=== PATIENT | female | born 2000 | race Hispanic/Latino ===

== ENCOUNTER 2018-05-10 13:48 | Outpatient (CLI) | payer MEDICAID ==
--- NOTE | 2018-05-10 16:01 | ULT ---
OB ULTRASOUND 05/10/18 HISTORY: Positive , evaluate size and dates. FINDINGS: There is a single intrauterine gestation with transverse lie head to the maternal left. Cardiac doppl er does demonstrate heart tones with heart rate of 152 beats per minute. The placenta is located anteriorly. Initial imaging questions possibility of a low lying placenta, but followup imagi ng after voiding suggests no evidence of placenta previa or low lying placenta. There is a normal anthony unt of amniotic fluid with an amniotic fluid index of 13.29 cm. measurements: Biparietal diameter 4.43 cm 19 weeks, 3 days Head circumference 17.03 cm 19 weeks, 5 days Abdominal circumference 15.56 cm 20 weeks, 6 days Femur length 3.06 cm 19 weeks, 4 days The estimated gestational age by ultrasound is 20 weeks. Gestational age by the last menstrual period is 20 weeks, 4 days. Estimated weight by ultrasound is 330 grams (12 oz). anatomical structures are not well evaluated on this exam given early intrauterine gestational age, but definite anomalies are visualized on this examination. IMPRESSION: 1. Single intrauterine gestation in transverse lie with heart tones documented. 2. Estimated gestational age by ultrasound is 20 weeks with DAMARIS on 09/27/18. 3. Estimated weight 330 grams (12 oz). 4. Limited visualization of the anatomical structures due to early intrauterine gestationa l age but no definite anomalies are seen. POS: BEHZAD
== END 2018-05-10 13:49 | disposition home or self-care (01) ==
LOC: BICULT 13:48
PROVIDERS: ATTEND Family Medicine
DX: Z34.02 Encounter for supervision of normal first pregnancy, second trimester (principal); Z3A.20 20 weeks gestation of pregnancy
CPT/HCPCS: 76805

== ENCOUNTER 2018-09-26 10:38 | Inpatient (IN) | payer OTHER ==
[2018-09-26] MEDS ORDERED: ePHEDrine/0.9% NaCl/PF SYRINGE 50 mg/10 ml ONE (11:11)
[2018-09-26] MEDS ORDERED: Bupivacaine/Epinephrine 0.25% 30 ML VIAL ONE (11:11)
[2018-09-26] MEDS ORDERED: Lidocaine 2% MPF 10 ML AMP (For Epidural Use) ONE (11:11)
[2018-09-26] MEDS ORDERED: Bupivacaine/Epinephrine 0.5% 10 ML VIAL ONE (11:11)
[2018-09-26] MEDS ORDERED: HYDROcodone/Acetaminophen 5/325 mg Tablet PO PRN (11:34)
[2018-09-26] MEDS ORDERED: Carboprost 250 MCG/ML AMP IM PRN (11:34)
[2018-09-26] MEDS ORDERED: Calcium Gluc 4.6 MEQ/10 ML (100 MG/ML) SLOW IVP PRN (11:34)
[2018-09-26] MEDS ORDERED: Meperidine HCl/PF 25 MG/ML VIAL IM/IV PRN (11:34)
[2018-09-26] MEDS ORDERED: Methylergonovine 0.2 MG/ML VIAL IM PRN (11:34)
[2018-09-26] MEDS ORDERED: Ondansetron PF 4 MG/2 ML Vial IVP PRN ×3 (11:34→20:04)
[2018-09-26] MEDS ORDERED: NS / Oxytocin 40 units/1000ml 1,000 ML IV PRN (11:34)
[2018-09-26] MEDS ORDERED: Ibuprofen 800 MG TAB PO PRN (11:34)
[2018-09-26] MEDS ORDERED: Promethazine HCl 25 MG/ML VIAL IM PRN ×3 (11:34→20:04)
[2018-09-26] MEDS ORDERED: Lidocaine 1% (PF) 30 ML VIAL SC PRN (11:34)
[2018-09-26] MEDS ORDERED: Misoprostol 200 MCG TAB PR PRN (11:34)
[2018-09-26] MEDS ORDERED: Lidocaine 1% (PF) 30 ML VIAL ONE (11:43)
[2018-09-26] MEDS: Lactated Ringer's 1,000 ML IV SCH ×2 (11:55→23:25)
[2018-09-26] MEDS ORDERED: Magnesium Sulfate 20 GM/WATER 500 ML BAG IVPB SCH (12:15)
[2018-09-26 12:33] LABS: Hemoglobin 11.5 g/dL (12.0-16.0); Mean Corpuscular HGB CONC 32.9 g/dL (32.0-36.0); Mean Corpuscular Hemoglobin 27.1 pg (25.0-35.0); Mean Corpuscular Volume 82.3 fL (78.0-98.0); Mean Platelet Volume 9.3 fL (7.4-10.4); Platelet Count 245 thou/uL (130-400); RBC Distribution Width 13.5 % (11.5-14.5); Red Blood Cell (RBC) Count 4.25 mill/uL (4.00-5.20); White Blood Cell (WBC) Count 9.5 thou/uL (4.8-10.8)
[2018-09-26 12:38] VITALS: BMI 54.1
[2018-09-26 13:15] LABS: Syphilis Antibody Nonreactive (Nonreactive); Syphilis Antibody Index 0.03 S/CO (<1.00 Non-Reactive)
[2018-09-26 13:16] LABS: HBSAg Index 0.23 S/CO (0-0.99); Hep B Surf Ag Non-Reactive S/CO (NonReactive)
[2018-09-26 13:42] LABS: ALT (SGPT) 8 U/L (8-55); AST (SGOT) 13 U/L (5-34); Alkaline Phosphatase 252 U/L (40-150); Anion Gap 15 mmol/L (10-20); BUN (Urea Nitrogen) 18 mg/dL (7.0-18.7); Bilirubin, Total 0.2 mg/dL (0.2-1.2); Calc. Creatinine Clearance 334 mL/min (70-130); Carbon Dioxide 19 mmol/L (22-29); Chloride 107 mmol/L (98-107); Estimated GFR-MDRD Greater than 90; Globulin 2.9 g/dL (2.4-3.5); Glucose 96 mg/dL (70-105); Potassium 4.5 mmol/L (3.5-5.1); Protein, Total 5.9 g/dL (6.0-8.3); Sodium 136 mmol/L (136-145)
[2018-09-26] MEDS: NS w/ Oxytocin 10 units 500 ML IV SCH (13:55)
--- NOTE | 2018-09-26 15:42 | PDOC.EVN ---
Event Note - Event Note Event Note: Cook's balloon placed without complications. Tolerated well. FWB reassuring. Continue pitocin. Continue magnesium for PIH. BP better so far, Labetolol PRN for severe range BP
[2018-09-26] MEDS: Butorphanol Tartrate 1 MG/ML VIAL SLOW IVP PRN ×2 (16:09→18:04)
[2018-09-26] MEDS ORDERED: Labetalol HCl 100 MG/20 ML VIAL ONE (17:52)
[2018-09-26] MEDS: Labetalol HCl 100 MG/20 ML VIAL SLOW IVP PRN ×2 (17:54→22:37)
[2018-09-26] MEDS ORDERED: Fentanyl 4 mcg/Bup 0.1% Cadd 100 ML ONE (19:15)
[2018-09-26] MEDS ORDERED: Eucerin (Mineral Oil/Petrolatum,White) 30 gm Jar TOP PRN ×2 (20:04)
[2018-09-26] MEDS ORDERED: diphenhydrAMINE 50 MG/ML VIAL IVP PRN ×2 (20:04)
[2018-09-26] MEDS ORDERED: Lactated Ringer's 500 ML IV PRN ×2 (20:04)
[2018-09-26] MEDS ORDERED: Acetaminophen 325 MG TAB PO PRN ×2 (20:04)
[2018-09-26] MEDS ORDERED: Naloxone HCl 0.4 mg/ml Vial IVP PRN ×4 (20:04)
[2018-09-26] MEDS ORDERED: ePHEDrine/0.9% NaCl/PF SYRINGE 50 mg/10 ml SLOW IVP PRN (20:04)
[2018-09-26] MEDS ORDERED: Fentanyl 4 mcg/Bupivacaine 0.1% Cassette 100 ML EPIDURAL SCH (20:15)
[2018-09-26] MEDS ORDERED: Communication Order-Pharmacy FS SCH ×2 (20:15)
[2018-09-26] MEDS: Magnesium Sulfate 20 gm/500 ml 20 GM/500 ML BAG IVPB SCH (20:42)
[2018-09-27] MEDS: ePHEDrine/0.9% NaCl/PF SYRINGE 50 mg/10 ml SLOW IVP PRN ×3 (00:48→01:34)
[2018-09-27] MEDS ORDERED: Fentanyl 4 mcg/Bup 0.1% Cadd 100 ML ONE ×3 (04:06→19:10)
[2018-09-27] MEDS: Lactated Ringer's 1,000 ML IV SCH ×3 (05:42→21:00)
--- NOTE | 2018-09-27 09:19 | PDOC.EVN ---
Event Note - Event Note Event Note: At bedside to evaluate patient. AROM with large amount of clear fluid. IUPC and FSE placed secondary to maternal body habitus. SVE 6/70/-2. FHT 150, moderate variability. Overnight BP dropped after epidural and baby was flat for some time. Anesthesia adjusted epidural rate and BP recovered with good recovery in FHT as well. Tolerating magnesium well. BP reasonably controlled at this time. Continue pitocin. Anticipate . Will plan 24 hours PP of magnesium.
[2018-09-27] MEDS: NS w/ Oxytocin 10 units 500 ML IV SCH (10:33)
[2018-09-27] MEDS: Acetaminophen 500 MG TAB PO PRN ×2 (12:58→21:11)
[2018-09-27] MEDS: Magnesium Sulfate 20 gm/500 ml 20 GM/500 ML BAG IVPB SCH (16:49)
[2018-09-27] MEDS: Labetalol HCl 100 MG/20 ML VIAL SLOW IVP PRN (20:45)
[2018-09-28] MEDS ORDERED: Fentanyl 4 mcg/Bup 0.1% Cadd 100 ML ONE (01:09)
[2018-09-28] MEDS ORDERED: Oxytocin 10 UNITS/ML VIAL ONE ×2 (02:05→03:05)
[2018-09-28] MEDS ORDERED: Morphine PF 1 MG/ML SYR ONE (02:07)
[2018-09-28] MEDS ORDERED: PHENYLEPHRINE-NS 100 MCG/ML 10 ML SYRINGE ONE ×3 (02:14→14:00)
[2018-09-28] MEDS ORDERED: ePHEDrine/0.9% NaCl/PF SYRINGE 50 mg/10 ml ONE (02:36)
[2018-09-28] MEDS ORDERED: Ketorolac Tromethamine 30 MG/ML VIAL IVP PRN (02:38)
[2018-09-28] MEDS ORDERED: L&D-Morphine 4 MG/ML VIAL SLOW IVP PRN (02:38)
[2018-09-28] MEDS ORDERED: Naloxone HCl 0.4 mg/ml Vial IV PRN (02:38)
[2018-09-28] MEDS ORDERED: Promethazine HCl 25 MG/ML VIAL IM PRN (02:38)
[2018-09-28] MEDS ORDERED: Eucerin (Mineral Oil/Petrolatum,White) 30 gm Jar TOP PRN (02:38)
[2018-09-28] MEDS ORDERED: Naloxone HCl 0.4 mg/ml Vial IVP PRN ×2 (02:38)
[2018-09-28] MEDS ORDERED: Ondansetron HCl/PF 4 MG/2 ML Vial IVP PRN (02:38)
[2018-09-28] MEDS ORDERED: Meperidine HCl/PF 25 MG/ML VIAL SLOW IVP PRN (02:38)
[2018-09-28] MEDS ORDERED: Promethazine HCl 25 MG SUPP PR PRN (02:38)
[2018-09-28] MEDS ORDERED: HYDROmorphone 2 MG/ML VIAL SLOW IVP PRN (02:38)
[2018-09-28] MEDS ORDERED: Ondansetron PF 4 MG/2 ML Vial IVP PRN ×2 (02:38→19:56)
[2018-09-28] MEDS ORDERED: diphenhydrAMINE 50 MG/ML VIAL IVP PRN (02:38)
[2018-09-28] MEDS ORDERED: Ondansetron PF 4 MG/2 ML Vial ONE ×2 (02:40→14:00)
[2018-09-28] MEDS ORDERED: Communication Order-Pharmacy FS SCH (02:45)
[2018-09-28] MEDS ORDERED: Ketorolac Tromethamine 30 MG/ML VIAL IVP SCH (02:45)
[2018-09-28] MEDS ORDERED: Azithromycin 1,000 MG in Sodium Chloride 0.9% 500 ML IVPB SCH (03:30)
[2018-09-28] MEDS: Lactated Ringer's 1,000 ML IV SCH ×2 (04:49→16:37)
[2018-09-28] MEDS: CEFAZOLIN 2 GM in Premix Bag 1 BAG IVPB SCH ×2 (06:00→14:14)
--- NOTE | 2018-09-28 06:01 | OP ---
DATE OF PROCEDURE: 09/28/2018 PREOPERATIVE DIAGNOSES: 1. Preeclampsia with severe features. 2. Intrauterine at 40 weeks. 3. Arrest of labor. POSTOPERATIVE DIAGNOSES: 1. Preeclampsia with severe features. 2. Intrauterine at 40 weeks. 3. Arrest of labor. PROCEDURE PERFORMED: Primary lower transverse section. APPLICATIONS ADMINISTRATOR: Dr. Rowan Rivera. ANESTHESIA: Epidural or regional. COMPLICATIONS: None. COUNTS: Correct. CONDITION: Stable to recovery room. SPECIMENS TO PATHOLOGY: None. FINDINGS: A male delivered at 2:31 a.m. on 09/28/2018 and OP presentation. Apgars were 9 and 9, weight was 4145 g. Uterus, tubes, and ovaries appeared normal at time of surgery. URINE OUTPUT: Per Anesthesia report. QUANTITATIVE BLOOD LOSS: Still pending. ESTIMATED BLOOD LOSS: 1 liter. DESCRIPTION OF PROCEDURE: The patient is a 18-year-old G1, now P1 female who was admitted to the hospital for induction of labor at 40 weeks gestation for preeclampsia. The patient underwent a long induction and was unable to get adequate contractions after many hours of attempts and rest at 6 cm. The patient was taken to the operating room, where she was identified as herself, placed in dorsal supine position with a leftward tilt after the patient has been prepared and draped in normal sterile fashion. After confirming good anesthetic and the regional block, a Pfannenstiel skin incision was made and carried down the level of fascia. Fascia was incised and extended laterally with Ortega scissors. The fascia was then grasped with two Monroe clamps and was bluntly and sharply dissected off the underlying rectus muscles both superiorly and inferiorly. The peritoneal cavity was entered into bluntly and the defect was extended bluntly and sharply. After inspection of the uterus, which was free of adhesions, an Luis Daniel O retractor was then inserted and good visualization of the lower uterine segment was achieved. A bladder flap was created. A transverse incision in the lower uterine segment was performed for hysterotomy and was delivered in LOP presentation with little difficulty. The mouth and nose were bulb suctioned. The cord clamped and cut. The infant was handed to the waiting attendant. The placenta was removed manually and the uterine cavity was then cleared of all clot and debris with lap. The hysterotomy was then closed with #1 Monocryl in a running locked fashion with second imbricating layer of same suture. Good hemostasis was noted and the abdomen was irrigated. The peritoneum was then closed with 2-0 chromic. The fascia was closed with 0 Vicryl in a running fashion. The subcutaneous fat was closed with 3-0 plain gut in a running fashion in two layers and the skin was closed with 4-0 Monocryl in a running fashion. The procedure was completed at that time and the incision was then bandaged. The patient was transferred to her recovery bed in stable condition. Job ID: [id number]
[2018-09-28] MEDS: Magnesium Sulfate 20 gm/500 ml 20 GM/500 ML BAG IVPB SCH ×2 (06:02→16:37)
[2018-09-28] MEDS ORDERED: Ketorolac Tromethamine 30 MG/ML VIAL ONE (08:30)
[2018-09-28] MEDS: Acetaminophen 500 MG TAB PO PRN (08:46)
[2018-09-28] MEDS ORDERED: Furosemide 20 MG/2 ML VIAL SLOW IVP SCH (11:45)
[2018-09-28] MEDS ORDERED: ePHEDrine 50 MG/ML VIAL ONE (14:00)
[2018-09-28] MEDS ORDERED: Magnesium Sulfate 20 gm/500 ml 20 GM/500 ML BAG IVPB SCH (19:56)
[2018-09-28] MEDS ORDERED: Lanolin Ointment 7 GM TUBE TOP PRN (19:56)
[2018-09-28] MEDS ORDERED: Bisacodyl 10 MG SUPP PR PRN (19:56)
[2018-09-28] MEDS ORDERED: Acetaminophen 325 MG TAB PO PRN (19:56)
[2018-09-28] MEDS ORDERED: Calcium Gluconate 4.6 MEQ in Sodium Chloride 0.9% 100 ML IVPB PRN (19:56)
--- NOTE | 2018-09-28 22:51 | PDOC.PP ---
Post Progress Note Post Day #: Still on magnesium until 230am, tolerating well, diuresing Subjective: Doing well. NO c/o. Tolerating magnesium. BP improving. Diuresing well after 1 dose of lasix earlier today. PO intake tolerated: yes Flatus: yes Ambulation: yes Vital Signs (12 hours) Temp 09/28/18 19:56 98.1 F Weight Weight 296 lb - Physical Examination General: NAD Cardiovascular: no m/r/g, RRR Respiratory: clear to auscultation bilaterally, non-labored breathing Abdominal: + bowel sounds, lochia, no distention, appropriately TTP Skin: CS incision dry & intact, no rash Psychiatric: A&Ox3, normal affect Result Diagrams: 09/26/18 12:19 09/26/18 12:20 Additional Labs: Post Labs Blood Type O POSITIVE 09/26/18 12:20 Hep Bs Antigen Non-Reactive S/CO (NonReactive) 09/26/18 12:20 (1) Preeclampsia Code(s): O14.90 - UNSPECIFIED PRE-ECLAMPSIA, UNSPECIFIED TRIMESTER Status: Acute (2) delivery delivered Code(s): O82 - ENCOUNTER FOR DELIVERY WITHOUT INDICATION Status: Acute - Assessment/Plan Continue magnesium for 24 hours Move to PP when off mag. Diuresis ongoing. BP stable. Routine post-op care
[2018-09-29] MEDS: HYDROcodone/Acetaminophen 5/325 mg Tablet PO PRN ×4 (02:46→21:25)
[2018-09-29] MEDS: Ibuprofen 800 MG TAB PO SCH ×4 (02:46→21:25)
[2018-09-29] MEDS: Ferrous Sulfate 325 MG TAB PO SCH ×3 (06:29→21:25)
[2018-09-29] MEDS: Docusate Calcium (SURFAK) 240 MG CAP PO SCH ×3 (06:29→21:25)
[2018-09-29 08:00] LABS: Hemoglobin 9.4 g/dL (12.0-16.0); Mean Corpuscular Hemoglobin 27.7 pg (25.0-35.0); Mean Corpuscular Volume 84.2 fL (78.0-98.0); Platelet Count 188 thou/uL (130-400); Red Blood Cell (RBC) Count 3.37 mill/uL (4.00-5.20); White Blood Cell (WBC) Count 14.2 thou/uL (4.8-10.8)
[2018-09-29] MEDS: Simethicone Chewable 80 MG TAB PO PRN ×2 (08:40→21:25)
[2018-09-29] MEDS ORDERED: Adacel (T-DAP) 0.5 ML SYRINGE IM ONE (09:00)
--- NOTE | 2018-09-29 10:41 | PDOC.PP ---
Post Progress Note Post Day #: 1 Subjective: Doing well. Feeling much better off magnesium. Has only breastfed once. Mostly bottle feeding. PO intake tolerated: yes Flatus: yes Ambulation: yes Vital Signs (12 hours) Temp Pulse Resp BP Pulse Ox 09/29/18 08:00 98.3 F 78 18 145/71 H 96 09/29/18 03:35 97.9 F 92 18 141/78 H Weight Weight 296 lb - Physical Examination General: NAD Cardiovascular: no m/r/g, RRR Respiratory: clear to auscultation bilaterally, non-labored breathing Abdominal: + bowel sounds, lochia, no distention, appropriately TTP Skin: CS incision dry & intact, no rash Result Diagrams: 09/29/18 06:45 09/26/18 12:20 Additional Labs: Post Labs Blood Type O POSITIVE 09/26/18 12:20 Hep Bs Antigen Non-Reactive S/CO (NonReactive) 09/26/18 12:20 (1) Preeclampsia Code(s): O14.90 - UNSPECIFIED PRE-ECLAMPSIA, UNSPECIFIED TRIMESTER Status: Acute (2) delivery delivered Code(s): O82 - ENCOUNTER FOR DELIVERY WITHOUT INDICATION Status: Acute - Assessment/Plan Routine post-op care Work on today Home tomorrow or Monday. BP improving post-op. I doubt she will need to go home with BP meds.
[2018-09-30] MEDS ORDERED: Sodium Chloride 0.9% 10 ML ONE (00:38)
[2018-09-30] MEDS: HYDROcodone/Acetaminophen 5/325 mg Tablet PO PRN ×5 (00:49→21:30)
[2018-09-30] MEDS: Ibuprofen 800 MG TAB PO SCH ×3 (05:14→21:26)
[2018-09-30] MEDS: Ferrous Sulfate 325 MG TAB PO SCH ×2 (09:11→21:26)
[2018-09-30] MEDS: Simethicone Chewable 80 MG TAB PO PRN (09:11)
[2018-09-30] MEDS: Docusate Calcium (SURFAK) 240 MG CAP PO SCH ×2 (09:11→21:27)
[2018-10-01] MEDS: Ibuprofen 800 MG TAB PO SCH (06:00)
[2018-10-01] MEDS: HYDROcodone/Acetaminophen 5/325 mg Tablet PO PRN (06:36)
[2018-10-01] MEDS ORDERED: Sodium Chloride 0.9% 10 ML ONE (06:56)
[2018-10-01 07:36] VITALS: TEMP 98.1
[2018-10-01 07:54] VITALS: BP 138/82
--- NOTE | 2018-10-01 08:44 | DIS ---
DATE OF ADMISSION: 09/26/2018 DATE OF DISCHARGE: 10/01/2018 DISCHARGE DIAGNOSES: 1. Postop day #3, status post primary low transverse section. 2. -induced hypertension. DISCHARGE MEDICATIONS: 1. Lamont 5/325 p.o. q.6 p.r.n. for pain. 2. vitamins daily. 3. Iron 325 daily. BRIEF HISTORY: This is a 18-year-old female, G1, P0, at term, who presented with elevated blood pressures and found to be in PIH. She was placed on mag sulfate. She was induced. However, she had failure to progress and proceeded to have a primary low-transverse section. HOSPITAL COURSE: The patient did well. Her blood pressures returned relatively to normal. She was placed on mag as well as labetalol p.r.n. She has done well postop. She is ready for discharge. She will follow up tomorrow in the office. Her latest blood pressure is 138/82, temperature 98.1. Her incision is dressed sterilely. Her was performed by Dr. Cook and Dr. Rivera. Discharge H and H were 9.4 and 28.4. Job ID: [id number]
[2018-10-01] MEDS: Docusate Calcium (SURFAK) 240 MG CAP PO SCH (09:14)
[2018-10-01] MEDS: Ferrous Sulfate 325 MG TAB PO SCH (09:14)
== END 2018-10-01 10:40 | disposition home or self-care (01) | DRG 788 ==
LOC: L&D 10:38 → 3SW 09-29 03:55
PROVIDERS: ADMIT Family Medicine; ATTEND Family Medicine
PROC: 3E033VJ Introduction of Other Hormone into Peripheral Vein, Percutaneous Approach (ICD-10-PCS; 2018-09-26)
PROC: 0U7C7ZZ Dilation of Cervix, Via Natural or Artificial Opening (ICD-10-PCS; 2018-09-27)
PROC: 10D00Z1 Extraction of Products of Conception, Low, Open Approach (ICD-10-PCS; principal; 2018-09-28)
PROC: 10907ZC Drainage of Amniotic Fluid, Therapeutic from Products of Conception, Via Natural or Artificial Opening (ICD-10-PCS; 2018-09-28)
PROC: 10H07YZ Insertion of Other Device into Products of Conception, Via Natural or Artificial Opening (ICD-10-PCS; 2018-09-28)
DX: O14.14 Severe pre-eclampsia complicating childbirth (principal); O62.0 Primary inadequate contractions; Z3A.40 40 weeks gestation of pregnancy; Z37.0 Single live birth
CPT/HCPCS: 36415; 36416; 51702; 80053; 81003; 83735; 85027; 86780; 86850; 86900; 86901; 87340; C1726; J0456; J0595; J1200; J1885; J1940; J2001; J2274; J2310; J2405; J2590; J3475; J3490; J7050

== ENCOUNTER 2022-03-30 08:31 | Outpatient (CLI) | payer OTHER | END 2022-03-30 08:32 | disposition home or self-care (01) | LOC: ULT 08:31 | PROVIDERS: ATTEND Internal Medicine Gastroenterology | DX: K76.0 Fatty (change of) liver, not elsewhere classified (principal); R94.5 Abnormal results of liver function studies | CPT/HCPCS: 76700 ==